=== PATIENT | female | born 1955 | race African-American/Black ===

== ENCOUNTER 2018-04-21 17:09 | Emergency (ER) | payer MEDICAID ==
[~2018-04-21] VITALS: Ht 152.4 cm; Wt 45.3 kg
[~2018-04-21 17:09] MED LIST: ACET-2178 PO; FAMO-134 PO; FOLI-43 PO; HYDR-523 PO; KEPP500 PO; LAM15 PO; LEVO100T9 PO; MULT-1146 PO; ONDA4TAB5 PO; OXCA300T4 PO; PHEN100C4 PO; TRAMADOL
[2018-04-21] MEDS ORDERED: SODIUM CHLORIDE 0.9% 1,000 ML IV ONE ×2 (17:47→23:45)
[2018-04-21] MEDS ORDERED: LORAZEPAM 2MG/ML CPJ IV ONE ×2 (18:30→23:45)
[2018-04-21 19:17] LABS: HEMATOCRIT. 35.8 % (36.0-48.0); HEMOGLOBIN. 12.2 g/dL (12.0-16.0); MEAN CORPUSCULAR HEMOGLOBIN 31.8 pg (28.0-32.0); MEAN CORPUSCULAR VOLUME 93.6 fL (81.0-99.0); MEAN PLATELET VOLUME 7.9 fl (7.4-10.4); PLATELET 204 x1000/uL (130-400); RED BLOOD CELL COUNT 3.82 mill/uL (4.2-5.4); RED CELL DISTRIBUTION WIDTH 13.6 % (11.6-14.6)
[2018-04-21 19:21] LABS: CHLORIDE 107 mEq/L (98-107)
[2018-04-21 19:24] LABS: INR 1.1; PARTIAL THROMBOPLASTIN TIME 23.3 sec (23.4-31.0)
[2018-04-21 19:34] LABS: PLATELET ESTIMATE NORMAL
[2018-04-21] MEDS ORDERED: LEVETIRACETAM 500MG PREMIX 100 ML IV ONE (23:45)
[2018-04-22] MEDS ORDERED: LORAZEPAM 2MG/ML CPJ IV ONE (02:30)
[2018-04-22] MEDS ORDERED: SODIUM CHLORIDE 0.9% 1,000 ML IV ONE (02:30)
[2018-04-22 04:10] VITALS: BP 124/81
== END 2018-04-22 04:21 | disposition home or self-care (01) ==
LOC: ER 17:09 → CANBEDREQ 04-22 05:36
DX: G40.909 Epilepsy, unspecified, not intractable, without status epilepticus (principal); G93.49 Other encephalopathy; I10 Essential (primary) hypertension; F03.90 Unspecified dementia, unspecified severity, without behavioral disturbance, psychotic disturbance, mood disturbance, and anxiety; Z86.73 Personal history of transient ischemic attack (TIA), and cerebral infarction without residual deficits; Z79.899 Other long term (current) drug therapy
CPT/HCPCS: 36415; 70450; 71045; 80053; 80185; 83605; 83690; 83880; 84145; 84484; 85025; 85610; 85730; 87040; 93005; 96365; 96375; 96376; 99284; J1953; J2060; J7030

== ENCOUNTER 2020-02-22 17:30 | Inpatient (IN) | payer MEDICAID ==
[~2020-02-22] VITALS: Ht 162.6 cm; Wt 56.8 kg
[~2020-02-22 17:30] MED LIST changes: -ACET-2178 PO; +TOPUD PO
[2020-02-22] MEDS ORDERED: VANCOMYCIN 1 G PREMIX 200 ML IV ONE (18:45)
[2020-02-22] MEDS ORDERED: PIPERACILLIN/TAZ 3.375G PREMIX 50 ML IV ONE (18:45)
[2020-02-22] MEDS ORDERED: SODIUM CHLORIDE 0.9% 1000ML BAG (SEPSIS BOLUS) IV ONE (18:45)
[2020-02-22] MEDS ORDERED: MAGNESIUM 2 G PREMIX 50 ML IV ONE (19:15)
[2020-02-22] MEDS ORDERED: ESMOLOL 2500MG PREMIX 250 ML IV NR (19:15)
[2020-02-22] MEDS ORDERED: ESMOLOL 2500MG PREMIX 250 ML IV ONE (19:15)
[2020-02-22 19:42] LABS: HEMATOCRIT. 39.7 % (36.0-48.0); HEMOGLOBIN. 13.2 g/dL (12.0-16.0); MEAN CORPUSCULAR HEMOGLOBIN 31.7 pg (28.0-32.0); MEAN CORPUSCULAR VOLUME 95.1 fL (81.0-99.0); MEAN PLATELET VOLUME 9.5 fl (7.4-10.4); PLATELET 148 x1000/uL (130-400); RED BLOOD CELL COUNT 4.18 mill/uL (4.2-5.4); RED CELL DISTRIBUTION WIDTH 14.1 % (11.6-14.6)
[2020-02-22 19:50] LABS: CHLORIDE 101 mEq/L (98-107)
[2020-02-22 19:53] LABS: INR 1.1; PROTHROMBIN TIME 11.2 sec (9.6-11.0)
[2020-02-22 20:05] LABS: CLARITY URINE TURBID (CLEAR); COLOR URINE DARK YELLOW (YELLOW); KETONES URINE NEGATIVE (NEGATIVE); LEUKOCYTE ESTERASE URINE 2+ (NEGATIVE); NITRITE URINE POSITIVE (NEGATIVE); OCCULT BLOOD URINE TRACE (NEGATIVE); PROTEIN URINE 2+ (NEGATIVE); SPECIFIC GRAVITY URINE 1.021 (1.005-1.030)
[2020-02-22 20:14] LABS: PLATELET ESTIMATE NORMAL
[2020-02-22] MEDS ORDERED: ACETAMINOPHEN 325MG TABLET PO ONE (20:30)
[2020-02-22] MEDS ORDERED: ONDANSETRON HCL 4MG/2ML INJ IV PRN (23:00)
[2020-02-22] MEDS ORDERED: ACETAMINOPHEN 325MG TABLET PO PRN (23:00)
[2020-02-22] MEDS ORDERED: SODIUM CHLORIDE 0.45% 1,000 ML IV SCH (23:00)
[2020-02-22] MEDS ORDERED: HYDROCODONE/ACETAMINOPHEN 5/325MG TABLET PO PRN (23:00)
[2020-02-22] MEDS ORDERED: CLONIDINE 0.1MG TABLET PO PRN (23:00)
[2020-02-22] MEDS ORDERED: PIPERACILLIN/TAZ 3.375G PREMIX 50 ML IV SCH (23:00)
[2020-02-22] MEDS ORDERED: MAGNESIUM/ALUMINUM HYDROXIDE/SIMETHICONE 30ML UDC PO PRN (23:00)
[2020-02-22] MEDS ORDERED: GUAIFENESIN 200MG/10ML SUGAR FREE UDC PO PRN (23:00)
[2020-02-22] MEDS ORDERED: DOCUSATE SODIUM 100MG CAPSULE PO PRN (23:00)
[2020-02-22] MEDS ORDERED: ENOXAPARIN 30MG/0.3ML SYR SUBCUT SCH (23:30)
[2020-02-23] MEDS ORDERED: PIPERACILLIN/TAZ 3.375G PREMIX 50 ML IV SCH (03:30)
[2020-02-23] MEDS ORDERED: ACETAMINOPHEN 325MG TABLET PO PRN ×2 (03:30→21:30)
[2020-02-23 06:08] LABS: HEMATOCRIT. 36.2 % (36.0-48.0); HEMOGLOBIN. 11.9 g/dL (12.0-16.0); MEAN CORPUSCULAR HEMOGLOBIN 31.9 pg (28.0-32.0); MEAN PLATELET VOLUME 10.5 fl (7.4-10.4); PLATELET 102 x1000/uL (130-400); RED BLOOD CELL COUNT 3.73 mill/uL (4.2-5.4); RED CELL DISTRIBUTION WIDTH 14.1 % (11.6-14.6)
[2020-02-23 06:09] LABS: CHLORIDE 108 mEq/L (98-107)
[2020-02-23] MEDS ORDERED: POTASSIUM CHLORIDE INJ 40 MEQ in DEXT 5% WATER 500 ML IV NR (08:00)
[2020-02-23 08:18] LABS: T4 FREE 1.14 ng/dL (0.76-1.46)
[2020-02-23] MEDS ORDERED: AMLODIPINE 10MG TABLET PO SCH (09:00)
[2020-02-23] MEDS ORDERED: DEXT 5%/0.45% NACL KCL 10MEQ/L 1,000 ML IV SCH (12:00)
[2020-02-23 12:20] VITALS: BP 116/73
[2020-02-23 12:43] VITALS: BP 116/73
[2020-02-23 13:00] VITALS: BP 116/73
[2020-02-23 13:58] LABS: PLATELET ESTIMATE SLIGHTLY DECREASED
[2020-02-23 15:59] LABS: CREATINE KINASE 123 IU/L (26-192)
[2020-02-23 16:20] VITALS: BP 91/52
[2020-02-23 20:00] VITALS: BP 112/73
[2020-02-23] MEDS ORDERED: GUAIFENESIN 200MG/10ML SUGAR FREE UDC PO PRN (21:30)
[2020-02-23] MEDS ORDERED: CLONIDINE 0.1MG TABLET PO PRN (21:30)
[2020-02-23] MEDS ORDERED: ONDANSETRON HCL 4MG/2ML INJ IV PRN (21:30)
[2020-02-23] MEDS ORDERED: DOCUSATE SODIUM 100MG CAPSULE PO PRN (21:30)
[2020-02-23] MEDS ORDERED: MAGNESIUM/ALUMINUM HYDROXIDE/SIMETHICONE 30ML UDC PO PRN (21:30)
[2020-02-23] MEDS ORDERED: HYDROCODONE/ACETAMINOPHEN 5/325MG TABLET PO PRN (21:30)
[2020-02-23] MEDS: ENOXAPARIN 30MG/0.3ML SYR SUBCUT SCH (23:00)
[2020-02-23] MEDS: DEXT 5%/0.45% NACL KCL 10MEQ/L 1,000 ML IV SCH (23:01)
[2020-02-23] MEDS: PIPERACILLIN/TAZOBACTAM 3.375 G in DEXT 5% WATER 100 ML IV SCH (23:01)
[2020-02-24] VITALS (16 sets, daily range): BP systolic 97–116; BP diastolic 64–90
[2020-02-24 00:11] LABS: CREATINE KINASE 76 IU/L (26-192)
[2020-02-24 00:12] LABS: CREATINE KINASE MB FRACTION < 1.0 ng/mL (0.5-3.6)
[2020-02-24] MEDS: PIPERACILLIN/TAZOBACTAM 3.375 G in DEXT 5% WATER 100 ML IV SCH ×2 (05:19→14:08)
[2020-02-24 07:04] LABS: CREATINE KINASE 103 IU/L (26-192)
[2020-02-24 07:05] LABS: CREATINE KINASE MB FRACTION < 1.0 ng/mL (0.5-3.6)
[2020-02-24] MEDS ORDERED: AMLODIPINE 10MG TABLET PO SCH (09:00)
[2020-02-24] MEDS: DEXT 5%/0.45% NACL KCL 10MEQ/L 1,000 ML IV SCH (11:35)
[2020-02-24] MEDS ORDERED: DILTIAZEM HCL 30MG TABLET PO PRN (12:00)
[2020-02-24] MEDS: SODIUM CHLORIDE 0.9% 1,000 ML IV SCH (12:52)
[2020-02-24] MEDS: MEROPENEM 1,000 MG in SODIUM CHLORIDE 0.9% 50 ML IV SCH (16:18)
[2020-02-24 16:57] LABS: BASOPHILS % 0.2 % (0.0-2.0); EOSINOPHILS % 5.9 % (0.0-5.0); HEMATOCRIT. 28.4 % (36.0-48.0); HEMOGLOBIN. 9.6 g/dL (12.0-16.0); LYMPHOCYTES % 8.9 % (20.0-50.0); MEAN CORPUSCULAR HEMOGLOBIN 31.9 pg (28.0-32.0); MEAN CORPUSCULAR VOLUME 94.4 fL (81.0-99.0); MEAN PLATELET VOLUME 8.4 fl (7.4-10.4); MONOCYTES % 7.8 % (2.0-8.0); NEUTROPHILS % 77.2 % (40.0-76.0); PLATELET 145 x1000/uL (130-400); RED BLOOD CELL COUNT 3.01 mill/uL (4.2-5.4); RED CELL DISTRIBUTION WIDTH 14.3 % (11.6-14.6)
[2020-02-24 17:01] LABS: CHLORIDE 112 mEq/L (98-107)
[2020-02-24] MEDS: METOCLOPRAMIDE HCL 10MG/2ML VIAL IV SCH (21:08)
[2020-02-24] MEDS: ENOXAPARIN 30MG/0.3ML SYR SUBCUT SCH (21:08)
[2020-02-25] VITALS (15 sets, daily range): BP systolic 95–117; BP diastolic 22–69
[2020-02-25] MEDS: MEROPENEM 1,000 MG in SODIUM CHLORIDE 0.9% 50 ML IV SCH ×3 (01:56→18:43)
[2020-02-25] MEDS: METOCLOPRAMIDE HCL 10MG/2ML VIAL IV SCH ×4 (03:11→20:51)
[2020-02-25] MEDS: SODIUM CHLORIDE 0.9% 1,000 ML IV SCH (03:11)
[2020-02-25 07:37] LABS: BASOPHILS % 0.2 % (0.0-2.0); EOSINOPHILS % 4.8 % (0.0-5.0); HEMOGLOBIN. 9.4 g/dL (12.0-16.0); LYMPHOCYTES % 8.6 % (20.0-50.0); MEAN CORPUSCULAR HEMOGLOBIN 31.8 pg (28.0-32.0); MEAN CORPUSCULAR VOLUME 94.8 fL (81.0-99.0); MEAN PLATELET VOLUME 8.8 fl (7.4-10.4); MONOCYTES % 10.7 % (2.0-8.0); NEUTROPHILS % 75.7 % (40.0-76.0); PLATELET 144 x1000/uL (130-400); RED BLOOD CELL COUNT 2.96 mill/uL (4.2-5.4); RED CELL DISTRIBUTION WIDTH 14.6 % (11.6-14.6)
[2020-02-25 07:38] LABS: CHLORIDE 116 mEq/L (98-107)
[2020-02-25] MEDS ORDERED: DEXTROSE 50% WATER 50ML SYRINGE IV PRN (09:15)
[2020-02-25] MEDS ORDERED: DEXT 5%/0.9% NACL 1,000 ML IV SCH (10:15)
[2020-02-25] MEDS: DEXT 5%/0.45% NACL 1000ML 1,000 ML IV SCH ×2 (10:25→22:47)
[2020-02-25] MEDS: BLOOD SUGAR DIAGNOSTIC STRIP TEST SCH ×3 (11:50→20:59)
[2020-02-25] MEDS: INSULIN LISPRO 100 UNITS/ML SUBCUT SCH ×3 (12:20→20:59)
[2020-02-25] MEDS: ENOXAPARIN 30MG/0.3ML SYR SUBCUT SCH (22:46)
[2020-02-26] VITALS (11 sets, daily range): BP systolic 112–123; BP diastolic 64–76
[2020-02-26] MEDS: METOCLOPRAMIDE HCL 10MG/2ML VIAL IV SCH ×3 (02:20→13:36)
[2020-02-26] MEDS: MEROPENEM 1,000 MG in SODIUM CHLORIDE 0.9% 50 ML IV SCH ×2 (02:20→09:40)
[2020-02-26 06:29] LABS: CHLORIDE 114 mEq/L (98-107)
[2020-02-26 06:43] LABS: BASOPHILS % 0.2 % (0.0-2.0); EOSINOPHILS % 4.8 % (0.0-5.0); HEMATOCRIT. 33.1 % (36.0-48.0); HEMOGLOBIN. 10.8 g/dL (12.0-16.0); LYMPHOCYTES % 12.5 % (20.0-50.0); MEAN CORPUSCULAR HEMOGLOBIN 31.5 pg (28.0-32.0); MEAN CORPUSCULAR VOLUME 96.4 fL (81.0-99.0); NEUTROPHILS % 69.5 % (40.0-76.0); RED BLOOD CELL COUNT 3.43 mill/uL (4.2-5.4); RED CELL DISTRIBUTION WIDTH 14.5 % (11.6-14.6)
[2020-02-26] MEDS: INSULIN LISPRO 100 UNITS/ML SUBCUT SCH ×3 (07:20→17:20)
[2020-02-26] MEDS: BLOOD SUGAR DIAGNOSTIC STRIP TEST SCH ×3 (07:36→17:10)
[2020-02-26 08:04] LABS: PLATELET 103 x1000/uL (130-400)
[2020-02-26] MEDS: DEXT 5%/0.45% NACL 1000ML 1,000 ML IV SCH (13:19)
[2020-02-26] MEDS ORDERED: MEROPENEM 1000MG in NORMAL SALINE 100ML IV SCH (17:00)
== END 2020-02-26 18:22 | DRG 720 ==
LOC: ER 17:30 → 6WST 21:06 → EDBEDREQTM 21:07 → EDBEDREQ 21:07 → EDBEDREQSVC 21:07 → ENRESERV 21:36 → CANRESERV 21:36 → EDBEDREQSVC 02-23 07:54 → ENRESERV 02-23 10:22 → 3WST 02-23 20:32
PROVIDERS: ADMIT Hospitalist; ATTEND Hospitalist
DX: A41.51 Sepsis due to Escherichia coli [E. coli] (principal); J96.01 Acute respiratory failure with hypoxia; G93.41 Metabolic encephalopathy; N39.0 Urinary tract infection, site not specified; I10 Essential (primary) hypertension; Z20.828 Contact with and (suspected) exposure to other viral communicable diseases; E43 Unspecified severe protein-calorie malnutrition; E86.0 Dehydration; I48.20 Chronic atrial fibrillation, unspecified; G40.909 Epilepsy, unspecified, not intractable, without status epilepticus; I35.0 Nonrheumatic aortic (valve) stenosis; F03.90 Unspecified dementia, unspecified severity, without behavioral disturbance, psychotic disturbance, mood disturbance, and anxiety; Z16.12 Extended spectrum beta lactamase (ESBL) resistance; Z86.73 Personal history of transient ischemic attack (TIA), and cerebral infarction without residual deficits; Z79.899 Other long term (current) drug therapy; Z68.21 Body mass index [BMI] 21.0-21.9, adult
CPT/HCPCS: 36415; 71045; 80053; 80061; 81003; 82550; 82553; 82962; 83036; 83605; 83735; 83880; 84145; 84439; 84443; 84484; 85025; 85379; 87077; 87186; 87426; 93005; 93306; 93970; 96365; 99291; J1650; J2185; J2543; J2765; J3370; J3475; J3480; J3490; J7030; J7060

== ENCOUNTER 2020-02-27 10:19 | Inpatient (IN) | payer MEDICAID ==
[~2020-02-27] VITALS: Ht 162.6 cm; Wt 71.4 kg
[2020-02-27] MEDS ORDERED: PIPERACILLIN/TAZ 3.375G PREMIX 50 ML IV ONE (11:00)
[2020-02-27] MEDS ORDERED: SODIUM CHLORIDE 0.9% 1000ML BAG (SEPSIS BOLUS) IV ONE (11:00)
[2020-02-27] MEDS ORDERED: VANCOMYCIN 1 G PREMIX 200 ML IV ONE (11:00)
[2020-02-27] MEDS ORDERED: MEROPENEM 1,000 MG in SODIUM CHLORIDE 0.9% 100 ML IV SCH (11:15)
[2020-02-27 11:54] LABS: BG BASE EXCESS 2.3 mmol/L (-2.0-2.0); BG CARBOXYHEMOGLOBIN 0.3 % (0.5-1.5); BG DEOXYHEMOGLOBIN 3.5 % (0.0-5.0); BG FRACTION INSPIRED OXYGEN 21; BG HCO3 ACT 24.9 mmol/L (22.0-26.0); BG METHEMOGLOBIN 0.2 % (0.0-1.5); BG OXYGEN SATURATION 96.5 % (92.0-98.5); BG PCO2 31.3 mmHg (35.0-45.0); BG PH 7.518 (7.350-7.450); BG PO2 79.6 mmHg (75.0-100.0); BG SAMPLE SITE RIGHT BRACHIAL; BG VENT MODE ROOM AIR
[2020-02-27 12:41] LABS: HEMATOCRIT. 28.9 % (36.0-48.0); HEMOGLOBIN. 9.7 g/dL (12.0-16.0); MEAN CORPUSCULAR HEMOGLOBIN 31.6 pg (28.0-32.0); MEAN CORPUSCULAR VOLUME 93.9 fL (81.0-99.0); PLATELET 259 x1000/uL (130-400); RED BLOOD CELL COUNT 3.08 mill/uL (4.2-5.4); RED CELL DISTRIBUTION WIDTH 14.2 % (11.6-14.6)
[2020-02-27 12:43] LABS: PROTHROMBIN TIME 10.3 sec (9.6-11.0)
[2020-02-27 13:03] LABS: CHLORIDE 110 mEq/L (98-107)
[2020-02-27 14:43] LABS: CLARITY URINE CLEAR (CLEAR); COLOR URINE YELLOW (YELLOW); KETONES URINE NEGATIVE (NEGATIVE); LEUKOCYTE ESTERASE URINE 1+ (NEGATIVE); NITRITE URINE NEGATIVE (NEGATIVE); OCCULT BLOOD URINE 2+ (NEGATIVE); PH URINE 6.5 (4.5-8.0); PROTEIN URINE 1+ (NEGATIVE); SPECIFIC GRAVITY URINE 1.016 (1.005-1.030)
[2020-02-27 14:47] LABS: PLATELET ESTIMATE NORMAL
[2020-02-27] MEDS ORDERED: ACETAMINOPHEN 325MG TABLET PO PRN ×2 (19:00)
[2020-02-27] MEDS ORDERED: HYDROCODONE/ACETAMINOPHEN 5/325MG TABLET PO PRN (19:00)
[2020-02-27] MEDS ORDERED: DOCUSATE SODIUM 100MG CAPSULE PO PRN (19:00)
[2020-02-27] MEDS ORDERED: LORAZEPAM 0.5MG TABLET PO PRN (19:00)
[2020-02-27] MEDS ORDERED: IPRATROPIUM/ALBUTEROL 0.5-3(2.5)MG/3ML NEB HHN PRN (19:00)
[2020-02-27] MEDS ORDERED: ONDANSETRON HCL 4MG/2ML INJ IV PRN (19:00)
[2020-02-27] MEDS ORDERED: CLONIDINE 0.1MG TABLET PO PRN (19:00)
[2020-02-27 21:16] VITALS: BP 126/74
[2020-02-27 23:56] VITALS: BP 133/80
[2020-02-28] MEDS ORDERED: LEVO50TA8 PO (03:05)
[2020-02-28 04:00] VITALS: BP 121/73
[2020-02-28] MEDS ORDERED: MEROPENEM 1,000 MG in SODIUM CHLORIDE 0.9% 100 ML IV SCH (05:00)
[2020-02-28 08:00] VITALS: BP 96/61
[2020-02-28 08:03] LABS: BASOPHILS % 0.2 % (0.0-2.0); EOSINOPHILS % 2.9 % (0.0-5.0); HEMATOCRIT. 29.2 % (36.0-48.0); HEMOGLOBIN. 9.9 g/dL (12.0-16.0); LYMPHOCYTES % 9.8 % (20.0-50.0); MEAN CORPUSCULAR HEMOGLOBIN 31.7 pg (28.0-32.0); MEAN CORPUSCULAR VOLUME 93.3 fL (81.0-99.0); MEAN PLATELET VOLUME 8.2 fl (7.4-10.4); MONOCYTES % 10.2 % (2.0-8.0); NEUTROPHILS % 76.9 % (40.0-76.0); PLATELET 281 x1000/uL (130-400); RED BLOOD CELL COUNT 3.13 mill/uL (4.2-5.4); RED CELL DISTRIBUTION WIDTH 14.3 % (11.6-14.6)
[2020-02-28 08:16] LABS: CHLORIDE 110 mEq/L (98-107)
[2020-02-28 12:00] VITALS: BP_SYST 119; BP_SYST 87; BP_DIAS 50; BP_DIAS 70
[2020-02-28 16:00] VITALS: BP 123/74
[2020-02-28] MEDS: FAMOTIDINE 20MG TABLET PO SCH (18:39)
[2020-02-28] MEDS: FOLIC ACID 1MG TABLET PO SCH (18:39)
[2020-02-28] MEDS: LEVOTHYROXINE SODIUM 50MCG TABLET PO SCH (18:39)
[2020-02-28] MEDS ORDERED: POTASSIUM CHLORIDE 20MEQ/PACKET PO NR (19:00)
[2020-02-28 20:00] VITALS: BP 125/76
[2020-02-28] MEDS ORDERED: PHENYTOIN SODIUM EXTENDED 100MG CAPSULE PO SCH (21:00)
[2020-02-28] MEDS: LAMOTRIGINE 150MG TABLET PO SCH (21:36)
[2020-02-28] MEDS: LEVETIRACETAM 500MG TABLET PO SCH (21:36)
[2020-02-28] MEDS: PHENYTOIN 100 MG/4 ML UDC NG SCH (21:38)
[2020-02-28] MEDS: OXCARBAZEPINE 300MG TABLET PO SCH (21:38)
[2020-02-28 22:30] LABS: FOLIC ACID (FOLATE) SERUM > 20.00 ng/mL (>5.38)
[2020-02-28 22:40] LABS: VITAMIN B12 SERUM 1036 pg/mL (211-911)
[2020-02-29] VITALS: BP 131/75
[2020-02-29 04:00] VITALS: BP 118/73
[2020-02-29] MEDS: LEVOTHYROXINE SODIUM 50MCG TABLET PO SCH (05:52)
[2020-02-29] MEDS: FAMOTIDINE 20MG TABLET PO SCH (05:52)
[2020-02-29 06:34] LABS: BASOPHILS % 0.2 % (0.0-2.0); EOSINOPHILS % 3.7 % (0.0-5.0); HEMATOCRIT. 29.5 % (36.0-48.0); HEMOGLOBIN. 9.9 g/dL (12.0-16.0); LYMPHOCYTES % 9.9 % (20.0-50.0); MEAN CORPUSCULAR HEMOGLOBIN 31.4 pg (28.0-32.0); MEAN PLATELET VOLUME 8.1 fl (7.4-10.4); MONOCYTES % 12.6 % (2.0-8.0); NEUTROPHILS % 73.6 % (40.0-76.0); PLATELET 354 x1000/uL (130-400); RED BLOOD CELL COUNT 3.14 mill/uL (4.2-5.4); RED CELL DISTRIBUTION WIDTH 14.3 % (11.6-14.6)
[2020-02-29 07:17] LABS: CHLORIDE 108 mEq/L (98-107)
[2020-02-29 08:00] VITALS: BP 125/77
[2020-02-29] MEDS: OXCARBAZEPINE 300MG TABLET PO SCH ×2 (10:08→20:52)
[2020-02-29] MEDS: FOLIC ACID 1MG TABLET PO SCH (10:08)
[2020-02-29] MEDS: LEVETIRACETAM 500MG TABLET PO SCH ×2 (10:08→20:52)
[2020-02-29] MEDS: LAMOTRIGINE 150MG TABLET PO SCH ×2 (10:08→20:52)
[2020-02-29] MEDS: MEROPENEM 1,000 MG in SODIUM CHLORIDE 0.9% 100 ML IV SCH ×2 (11:19→20:47)
[2020-02-29 12:00] VITALS: BP 131/68
[2020-02-29] MEDS: LACTULOSE 20G/30ML UDC PO SCH ×2 (15:17→21:01)
[2020-02-29 16:00] VITALS: BP 109/67
[2020-02-29 20:00] VITALS: BP 113/65
[2020-02-29] MEDS: PHENYTOIN 100 MG/4 ML UDC NG SCH (20:52)
[2020-03-01] VITALS: BP 112/63
[2020-03-01] MEDS: MEROPENEM 1,000 MG in SODIUM CHLORIDE 0.9% 100 ML IV SCH ×3 (03:06→22:07)
[2020-03-01 04:00] VITALS: BP 97/66
[2020-03-01] MEDS: LACTULOSE 20G/30ML UDC PO SCH ×3 (06:08→22:07)
[2020-03-01] MEDS: FAMOTIDINE 20MG TABLET PO SCH (06:08)
[2020-03-01] MEDS: LEVOTHYROXINE SODIUM 50MCG TABLET PO SCH (06:09)
[2020-03-01 06:57] LABS: CHLORIDE 110 mEq/L (98-107)
[2020-03-01 06:58] LABS: BASOPHILS % 0.5 % (0.0-2.0); EOSINOPHILS % 4.7 % (0.0-5.0); HEMATOCRIT. 26.5 % (36.0-48.0); HEMOGLOBIN. 8.8 g/dL (12.0-16.0); LYMPHOCYTES % 12.5 % (20.0-50.0); MEAN CORPUSCULAR HEMOGLOBIN 31.6 pg (28.0-32.0); MEAN CORPUSCULAR VOLUME 94.6 fL (81.0-99.0); MEAN PLATELET VOLUME 8.6 fl (7.4-10.4); MONOCYTES % 8.2 % (2.0-8.0); NEUTROPHILS % 74.1 % (40.0-76.0); PLATELET 355 x1000/uL (130-400); RED CELL DISTRIBUTION WIDTH 14.3 % (11.6-14.6)
[2020-03-01 07:22] LABS: HEPATITIS B SURFACE ANTIGEN NEGATIVE
[2020-03-01 07:51] LABS: HEPATITIS A AB IGM NEGATIVE (NEGATIVE)
[2020-03-01 08:00] VITALS: BP 103/71
[2020-03-01] MEDS: OXCARBAZEPINE 300MG TABLET PO SCH ×2 (10:22→22:06)
[2020-03-01] MEDS: LEVETIRACETAM 500MG TABLET PO SCH ×2 (10:22→22:07)
[2020-03-01] MEDS: FOLIC ACID 1MG TABLET PO SCH (10:22)
[2020-03-01] MEDS: LAMOTRIGINE 150MG TABLET PO SCH ×2 (10:22→22:07)
[2020-03-01 12:00] VITALS: BP 119/70
[2020-03-01 16:00] VITALS: BP 107/58
[2020-03-01 20:00] VITALS: BP 113/63
[2020-03-02] VITALS (8 sets, daily range): BP systolic 101–122; BP diastolic 58–75
[2020-03-02] MEDS: MEROPENEM 1,000 MG in SODIUM CHLORIDE 0.9% 100 ML IV SCH ×3 (03:33→21:31)
[2020-03-02] MEDS: LACTULOSE 20G/30ML UDC PO SCH ×3 (05:48→21:31)
[2020-03-02] MEDS: LEVOTHYROXINE SODIUM 50MCG TABLET PO SCH (05:48)
[2020-03-02] MEDS: FAMOTIDINE 20MG TABLET PO SCH (05:48)
[2020-03-02 05:58] LABS: CHLORIDE 111 mEq/L (98-107)
[2020-03-02 06:13] LABS: TOTAL IRON BINDING CAPACITY 224 ug/dL (250-450)
[2020-03-02 06:28] LABS: BASOPHILS % 0.4 % (0.0-2.0); HEMATOCRIT. 26.7 % (36.0-48.0); LYMPHOCYTES % 10.5 % (20.0-50.0); MEAN CORPUSCULAR HEMOGLOBIN 31.9 pg (28.0-32.0); MEAN CORPUSCULAR VOLUME 94.2 fL (81.0-99.0); MEAN PLATELET VOLUME 7.8 fl (7.4-10.4); MONOCYTES % 8.4 % (2.0-8.0); NEUTROPHILS % 76.7 % (40.0-76.0); PLATELET 390 x1000/uL (130-400); RED BLOOD CELL COUNT 2.83 mill/uL (4.2-5.4); RED CELL DISTRIBUTION WIDTH 14.3 % (11.6-14.6)
[2020-03-02] MEDS: LEVETIRACETAM 500MG TABLET PO SCH ×2 (09:21→21:31)
[2020-03-02] MEDS: LAMOTRIGINE 150MG TABLET PO SCH ×2 (09:21→21:31)
[2020-03-02] MEDS: OXCARBAZEPINE 300MG TABLET PO SCH ×2 (09:21→21:31)
[2020-03-02] MEDS: FOLIC ACID 1MG TABLET PO SCH (09:21)
[2020-03-02] MEDS ORDERED: KCL 20MEQ/100ML PREMIX 100 ML IV NR (13:00)
[2020-03-02] MEDS ORDERED: SODIUM CHLORIDE 0.9% 500 ML IV ONE ×2 (14:00→16:00)
[2020-03-02] MEDS: FERROUS SULFATE 300MG/5ML UDC PO SCH (17:28)
[2020-03-03] VITALS: BP 104/62
[2020-03-03 04:00] VITALS: BP 132/61
[2020-03-03] MEDS: MEROPENEM 1,000 MG in SODIUM CHLORIDE 0.9% 100 ML IV SCH ×3 (04:20→20:45)
[2020-03-03 06:11] LABS: HEMATOCRIT. 29.6 % (36.0-48.0); HEMOGLOBIN. 9.9 g/dL (12.0-16.0); MEAN CORPUSCULAR HEMOGLOBIN 31.3 pg (28.0-32.0); MEAN CORPUSCULAR VOLUME 94.1 fL (81.0-99.0); MEAN PLATELET VOLUME 7.6 fl (7.4-10.4); PLATELET 413 x1000/uL (130-400); RED BLOOD CELL COUNT 3.15 mill/uL (4.2-5.4); RED CELL DISTRIBUTION WIDTH 14.4 % (11.6-14.6)
[2020-03-03 06:15] LABS: CHLORIDE 112 mEq/L (98-107)
[2020-03-03] MEDS: LACTULOSE 20G/30ML UDC PO SCH ×3 (06:16→21:09)
[2020-03-03] MEDS: FERROUS SULFATE 300MG/5ML UDC PO SCH ×3 (06:16→18:24)
[2020-03-03] MEDS: LEVOTHYROXINE SODIUM 50MCG TABLET PO SCH (06:17)
[2020-03-03] MEDS: FAMOTIDINE 20MG TABLET PO SCH (06:17)
[2020-03-03 08:00] VITALS: BP 107/55
[2020-03-03] MEDS: FOLIC ACID 1MG TABLET PO SCH (09:27)
[2020-03-03] MEDS: OXCARBAZEPINE 300MG TABLET PO SCH ×2 (09:27→20:45)
[2020-03-03] MEDS: LEVETIRACETAM 500MG TABLET PO SCH ×2 (09:27→20:45)
[2020-03-03] MEDS: LAMOTRIGINE 150MG TABLET PO SCH ×2 (09:27→20:45)
[2020-03-03 10:51] LABS: PLATELET ESTIMATE SLIGHTLY INCREASED
[2020-03-03 12:00] VITALS: BP 98/55
[2020-03-03 16:00] VITALS: BP 96/58
[2020-03-03 20:00] VITALS: BP 93/57
[2020-03-04] VITALS (11 sets, daily range): BP systolic 94–142; BP diastolic 46–79
[2020-03-04] MEDS: MEROPENEM 1,000 MG in SODIUM CHLORIDE 0.9% 100 ML IV SCH ×3 (04:29→20:45)
[2020-03-04] MEDS: LACTULOSE 20G/30ML UDC PO SCH ×4 (05:08→21:51)
[2020-03-04] MEDS: FAMOTIDINE 20MG TABLET PO SCH (05:53)
[2020-03-04] MEDS: LEVOTHYROXINE SODIUM 50MCG TABLET PO SCH (05:53)
[2020-03-04] MEDS: FERROUS SULFATE 300MG/5ML UDC PO SCH ×4 (06:27→18:02)
[2020-03-04 07:06] LABS: HEMATOCRIT. 27.7 % (36.0-48.0); HEMOGLOBIN. 9.2 g/dL (12.0-16.0); MEAN CORPUSCULAR HEMOGLOBIN 31.2 pg (28.0-32.0); MEAN CORPUSCULAR VOLUME 94.2 fL (81.0-99.0); MEAN PLATELET VOLUME 7.6 fl (7.4-10.4); PLATELET 418 x1000/uL (130-400); RED BLOOD CELL COUNT 2.94 mill/uL (4.2-5.4); RED CELL DISTRIBUTION WIDTH 14.5 % (11.6-14.6)
[2020-03-04 07:14] LABS: CHLORIDE 108 mEq/L (98-107)
[2020-03-04 09:09] LABS: LEVETIRACETAM / KEPPRA 12.2 ug/mL (10.0-40.0)
[2020-03-04] MEDS: LAMOTRIGINE 150MG TABLET PO SCH ×2 (09:30→21:00)
[2020-03-04] MEDS: LEVETIRACETAM 500MG TABLET PO SCH ×2 (09:30→21:00)
[2020-03-04] MEDS: OXCARBAZEPINE 300MG TABLET PO SCH ×2 (09:30→21:00)
[2020-03-04] MEDS: FOLIC ACID 1MG TABLET PO SCH (09:30)
[2020-03-04] MEDS ORDERED: BARIUM SULFATE 450ML ORAL SUSP PO SCH ×2 (11:00)
[2020-03-04] MEDS ORDERED: SODIUM BICARBONATE 4% (2.4MEQ) 5ML VIAL IV ONE ×2 (11:38→12:37)
[2020-03-04] MEDS ORDERED: LIDOCAINE HCL 1% 20ML VIAL (Pyxis) INJ ONE ×2 (11:39→12:37)
[2020-03-04] MEDS ORDERED: IOHEXOL-300 100 ML BOTTLE ONE (12:30)
[2020-03-04] MEDS ORDERED: FENTANYL CITRATE/PF 50MCG/ML 2ML VIAL ONE (12:37)
[2020-03-04 18:58] LABS: PLATELET ESTIMATE SLIGHTLY INCREASED
[2020-03-05] VITALS: BP_SYST 120; BP_SYST 135; BP_DIAS 69; BP_DIAS 75
[2020-03-05] MEDS: MEROPENEM 1,000 MG in SODIUM CHLORIDE 0.9% 100 ML IV SCH ×3 (03:25→20:12)
[2020-03-05 04:00] VITALS: BP 101/63
[2020-03-05] MEDS: LACTULOSE 20G/30ML UDC PO SCH ×3 (06:00→20:13)
[2020-03-05 06:41] LABS: BASOPHILS % 0.4 % (0.0-2.0); EOSINOPHILS % 2.3 % (0.0-5.0); HEMATOCRIT. 25.5 % (36.0-48.0); HEMOGLOBIN. 8.6 g/dL (12.0-16.0); LYMPHOCYTES % 8.3 % (20.0-50.0); MEAN CORPUSCULAR HEMOGLOBIN 31.7 pg (28.0-32.0); MEAN CORPUSCULAR VOLUME 93.8 fL (81.0-99.0); MEAN PLATELET VOLUME 7.6 fl (7.4-10.4); MONOCYTES % 7.9 % (2.0-8.0); NEUTROPHILS % 81.1 % (40.0-76.0); PLATELET 397 x1000/uL (130-400); RED BLOOD CELL COUNT 2.72 mill/uL (4.2-5.4); RED CELL DISTRIBUTION WIDTH 14.6 % (11.6-14.6)
[2020-03-05] MEDS: LEVOTHYROXINE SODIUM 50MCG TABLET PO SCH (06:44)
[2020-03-05] MEDS: FERROUS SULFATE 300MG/5ML UDC PO SCH ×3 (06:44→17:15)
[2020-03-05] MEDS: FAMOTIDINE 20MG TABLET PO SCH (06:44)
[2020-03-05 06:51] LABS: CHLORIDE 107 mEq/L (98-107)
[2020-03-05 08:14] VITALS: BP 113/66
[2020-03-05] MEDS: FOLIC ACID 1MG TABLET PO SCH (09:00)
[2020-03-05] MEDS: LEVETIRACETAM 500MG TABLET PO SCH ×2 (09:00→20:13)
[2020-03-05] MEDS: LAMOTRIGINE 150MG TABLET PO SCH ×2 (09:00→20:13)
[2020-03-05] MEDS: OXCARBAZEPINE 300MG TABLET PO SCH ×2 (09:00→20:13)
[2020-03-05] MEDS: SODIUM CHLORIDE 0.9% 1,000 ML IV SCH (10:30)
[2020-03-05] MEDS ORDERED: LEVETIRACETAM 500MG PREMIX 100 ML IV SCH (11:00)
[2020-03-05 12:00] VITALS: BP 121/75
[2020-03-05 16:00] VITALS: BP 126/67
[2020-03-05 20:00] VITALS: BP 129/81
[2020-03-06] VITALS: BP 123/83
[2020-03-06] MEDS: SODIUM CHLORIDE 0.9% 1,000 ML IV SCH ×3 (03:03→23:14)
[2020-03-06 04:00] VITALS: BP 126/71
[2020-03-06] MEDS: MEROPENEM 1,000 MG in SODIUM CHLORIDE 0.9% 100 ML IV SCH ×3 (04:33→20:19)
[2020-03-06 05:53] LABS: BASOPHILS % 0.8 % (0.0-2.0); EOSINOPHILS % 5.3 % (0.0-5.0); HEMATOCRIT. 28.2 % (36.0-48.0); HEMOGLOBIN. 9.5 g/dL (12.0-16.0); MEAN CORPUSCULAR HEMOGLOBIN 31.3 pg (28.0-32.0); MEAN CORPUSCULAR VOLUME 92.9 fL (81.0-99.0); MEAN PLATELET VOLUME 7.6 fl (7.4-10.4); MONOCYTES % 8.1 % (2.0-8.0); NEUTROPHILS % 72.8 % (40.0-76.0); PLATELET 420 x1000/uL (130-400); RED BLOOD CELL COUNT 3.04 mill/uL (4.2-5.4)
[2020-03-06] MEDS: LEVOTHYROXINE SODIUM 50MCG TABLET PO SCH (05:58)
[2020-03-06] MEDS: FERROUS SULFATE 300MG/5ML UDC PO SCH ×3 (05:58→17:46)
[2020-03-06] MEDS: LACTULOSE 20G/30ML UDC PO SCH ×3 (05:58→20:19)
[2020-03-06] MEDS: FAMOTIDINE 20MG TABLET PO SCH (05:58)
[2020-03-06 06:46] LABS: CHLORIDE 110 mEq/L (98-107)
[2020-03-06 08:00] VITALS: BP 129/72
[2020-03-06 12:00] VITALS: BP 115/71
[2020-03-06] MEDS ORDERED: MIDAZOLAM HCL 5 MG/5 ML VIAL ONE (12:03)
[2020-03-06] MEDS ORDERED: FENTANYL CITRATE/PF 50MCG/ML 2ML VIAL ONE (12:03)
[2020-03-06] MEDS ORDERED: MIDAZOLAM HCL 2 MG/2 ML VIAL IV PRN (12:27)
[2020-03-06] MEDS: FOLIC ACID 1MG TABLET PO SCH (13:44)
[2020-03-06] MEDS: LEVETIRACETAM 500MG TABLET PO SCH ×2 (13:44→20:19)
[2020-03-06] MEDS: OXCARBAZEPINE 300MG TABLET PO SCH ×2 (13:44→20:19)
[2020-03-06] MEDS: LAMOTRIGINE 150MG TABLET PO SCH ×2 (13:44→20:19)
[2020-03-06 16:00] VITALS: BP 126/75
[2020-03-06 20:00] VITALS: BP 94/57
[2020-03-07] VITALS (8 sets, daily range): BP systolic 107–139; BP diastolic 59–79
[2020-03-07] MEDS: MEROPENEM 1,000 MG in SODIUM CHLORIDE 0.9% 100 ML IV SCH ×3 (04:51→20:41)
[2020-03-07 05:53] LABS: BASOPHILS % 0.6 % (0.0-2.0); EOSINOPHILS % 3.2 % (0.0-5.0); HEMATOCRIT. 27.3 % (36.0-48.0); HEMOGLOBIN. 9.4 g/dL (12.0-16.0); LYMPHOCYTES % 10.2 % (20.0-50.0); MEAN CORPUSCULAR VOLUME 93.1 fL (81.0-99.0); MEAN PLATELET VOLUME 7.6 fl (7.4-10.4); MONOCYTES % 7.3 % (2.0-8.0); NEUTROPHILS % 78.7 % (40.0-76.0); PLATELET 420 x1000/uL (130-400); RED BLOOD CELL COUNT 2.93 mill/uL (4.2-5.4); RED CELL DISTRIBUTION WIDTH 13.7 % (11.6-14.6)
[2020-03-07 06:18] LABS: CHLORIDE 109 mEq/L (98-107)
[2020-03-07] MEDS: FAMOTIDINE 20MG TABLET PO SCH (06:42)
[2020-03-07] MEDS: LACTULOSE 20G/30ML UDC PO SCH ×3 (06:42→21:35)
[2020-03-07] MEDS: LEVOTHYROXINE SODIUM 50MCG TABLET PO SCH (06:42)
[2020-03-07] MEDS: FERROUS SULFATE 300MG/5ML UDC PO SCH ×3 (06:42→18:35)
[2020-03-07] MEDS: LEVETIRACETAM 500MG TABLET PO SCH ×2 (09:02→21:35)
[2020-03-07] MEDS: FOLIC ACID 1MG TABLET PO SCH (09:02)
[2020-03-07] MEDS: LAMOTRIGINE 150MG TABLET PO SCH ×2 (09:02→21:35)
[2020-03-07] MEDS: OXCARBAZEPINE 300MG TABLET PO SCH ×2 (09:03→21:35)
[2020-03-07] MEDS ORDERED: AMOX-424 MT (13:47)
[2020-03-07] MEDS ORDERED: DEXTROSE 5% IV NR ×4 (18:30→21:00)
[2020-03-07] MEDS ORDERED: FOSPHENYTOIN SODIUM IV NR ×4 (18:30→21:00)
[2020-03-07] MEDS ORDERED: WATER IV NR ×4 (18:30→21:00)
[2020-03-07] MEDS: SODIUM CHLORIDE 0.9% 1,000 ML IV SCH (18:36)
== END 2020-03-07 23:54 | DRG 720 ==
LOC: ER 10:26 → 7EST 14:46 → EDBEDREQTM 14:50 → EDBEDREQ 14:50 → EDBEDREQSVC 14:50 → ENRESERV 15:30 → CANRESERV 15:30 → ENRESERV 19:22 → 5WST 02-29 08:48
PROVIDERS: ADMIT Internal Medicine; ATTEND Internal Medicine
PROC: 4A10X4Z Monitoring of Central Nervous Electrical Activity, External Approach (ICD-10-PCS; principal; 2020-03-02)
PROC: 02HV33Z Insertion of Infusion Device into Superior Vena Cava, Percutaneous Approach (ICD-10-PCS; 2020-03-04)
PROC: B518ZZA Fluoroscopy of Superior Vena Cava, Guidance (ICD-10-PCS; 2020-03-04)
PROC: B548ZZA Ultrasonography of Superior Vena Cava, Guidance (ICD-10-PCS; 2020-03-04)
PROC: 0F943ZZ Drainage of Gallbladder, Percutaneous Approach (ICD-10-PCS; 2020-03-04)
PROC: 0DH63UZ Insertion of Feeding Device into Stomach, Percutaneous Approach (ICD-10-PCS; 2020-03-06)
DX: A41.9 Sepsis, unspecified organism (principal); G92 Toxic encephalopathy; N39.0 Urinary tract infection, site not specified; J18.9 Pneumonia, unspecified organism; E87.2 Acidosis; D72.821 Monocytosis (symptomatic); E87.6 Hypokalemia; I35.0 Nonrheumatic aortic (valve) stenosis; G40.909 Epilepsy, unspecified, not intractable, without status epilepticus; F03.90 Unspecified dementia, unspecified severity, without behavioral disturbance, psychotic disturbance, mood disturbance, and anxiety; I48.91 Unspecified atrial fibrillation; F32.9 Major depressive disorder, single episode, unspecified; K21.9 Gastro-esophageal reflux disease without esophagitis; D72.810 Lymphocytopenia; D50.9 Iron deficiency anemia, unspecified; E87.4 Mixed disorder of acid-base balance; Z16.12 Extended spectrum beta lactamase (ESBL) resistance; R74.01 Elevation of levels of liver transaminase levels; K80.01 Calculus of gallbladder with acute cholecystitis with obstruction; E72.20 Disorder of urea cycle metabolism, unspecified; Z20.828 Contact with and (suspected) exposure to other viral communicable diseases; K44.9 Diaphragmatic hernia without obstruction or gangrene; R13.12 Dysphagia, oropharyngeal phase; E43 Unspecified severe protein-calorie malnutrition; E11.9 Type 2 diabetes mellitus without complications; G81.94 Hemiplegia, unspecified affecting left nondominant side; I63.512 Cerebral infarction due to unspecified occlusion or stenosis of left middle cerebral artery; I11.0 Hypertensive heart disease with heart failure; I50.32 Chronic diastolic (congestive) heart failure; Z86.73 Personal history of transient ischemic attack (TIA), and cerebral infarction without residual deficits; Z74.01 Bed confinement status; Z93.1 Gastrostomy status; Z79.891 Long term (current) use of opiate analgesic; Z79.890 Hormone replacement therapy; Z79.899 Other long term (current) drug therapy; Z68.27 Body mass index [BMI] 27.0-27.9, adult
CPT/HCPCS: 36415; 36573; 36600; 70551; 71045; 74018; 74160; 76700; 77012; 78227; 80048; 80053; 80061; 80076; 80185; 81003; 82140; 82248; 82375; 82542; 82607; 82728; 82746; 82805; 82962; 83540; 83550; 83605; 84145; 84484; 85025; 86705; 86709; 86803; 87340; 87426; 93005; 93970; 93971; 95816; 99291; A9537; C1725; C1729; C1769; J1953; J2185; J2250; J3010; J3370; J3480; J3490; J7030; J7050; J7060; Q2009; Q9967; U0003-CS

== ENCOUNTER 2020-03-24 15:58 | Inpatient (IN) | payer MEDICAID ==
[~2020-03-24] VITALS: Ht 160 cm; Wt 53.2 kg
[~2020-03-24 15:58] MED LIST changes: +AMOX-424 MT; -LEVO100T9 PO; +LEVO50TA8 PO; -PHEN100C4 PO; -TRAMADOL
[2020-03-24] MEDS ORDERED: ACETAMINOPHEN 325MG TABLET PO STA (16:23)
[2020-03-24] MEDS ORDERED: PIPERACILLIN/TAZ 3.375G PREMIX 50 ML IV ONE (16:30)
[2020-03-24] MEDS ORDERED: VANCOMYCIN 1 G PREMIX 200 ML IV ONE (16:30)
[2020-03-24] MEDS ORDERED: SODIUM CHLORIDE 0.9% 1000ML BAG (SEPSIS BOLUS) IV ONE (16:30)
[2020-03-24 17:10] LABS: HEMATOCRIT. 33.7 % (36.0-48.0); HEMOGLOBIN. 10.9 g/dL (12.0-16.0); MEAN CORPUSCULAR HEMOGLOBIN 29.6 pg (28.0-32.0); MEAN CORPUSCULAR VOLUME 91.6 fL (81.0-99.0); PLATELET 335 x1000/uL (130-400); RED BLOOD CELL COUNT 3.68 mill/uL (4.2-5.4); RED CELL DISTRIBUTION WIDTH 14.7 % (11.6-14.6)
[2020-03-24 17:16] LABS: PROTHROMBIN TIME 10.6 sec (9.6-11.0)
[2020-03-24 17:18] LABS: CHLORIDE 111 mEq/L (98-107)
[2020-03-24 17:26] LABS: PLATELET ESTIMATE NORMAL
[2020-03-24 17:33] LABS: CLARITY URINE TURBID (CLEAR); COLOR URINE DARK YELLOW (YELLOW); KETONES URINE NEGATIVE (NEGATIVE); LEUKOCYTE ESTERASE URINE TRACE (NEGATIVE); NITRITE URINE NEGATIVE (NEGATIVE); OCCULT BLOOD URINE 1+ (NEGATIVE); PH URINE 7.5 (4.5-8.0); PROTEIN URINE 2+ (NEGATIVE); SPECIFIC GRAVITY URINE 1.012 (1.005-1.030)
[2020-03-24 23:00] VITALS: BP 126/68
[2020-03-25] VITALS (14 sets, daily range): BP systolic 92–119; BP diastolic 49–74
[2020-03-25] MEDS ORDERED: ACETAMINOPHEN 650MG/20.3ML UDC PO PRN (01:30)
[2020-03-25] MEDS ORDERED: ONDANSETRON HCL 4MG TABLET PO PRN (01:30)
[2020-03-25] MEDS ORDERED: HYDROCODONE/ACETAMINOPHEN 5/325MG TABLET PO PRN (01:30)
[2020-03-25] MEDS: PIPERACILLIN/TAZOBACTAM 3.375 G in DEXT 5% WATER 100 ML IV SCH ×4 (04:41→21:32)
[2020-03-25] MEDS ORDERED: DEXTROSE 50% WATER 50ML SYRINGE IV PRN (05:30)
[2020-03-25 05:59] LABS: CHLORIDE 114 mEq/L (98-107)
[2020-03-25] MEDS ORDERED: VANCOMYCIN 1 G PREMIX 200 ML IV SCH (06:00)
[2020-03-25 06:09] LABS: HEMATOCRIT. 30.6 % (36.0-48.0); HEMOGLOBIN. 9.9 g/dL (12.0-16.0); MEAN CORPUSCULAR HEMOGLOBIN 29.4 pg (28.0-32.0); MEAN CORPUSCULAR VOLUME 90.6 fL (81.0-99.0); MEAN PLATELET VOLUME 9.2 fl (7.4-10.4); PLATELET 326 x1000/uL (130-400); RED BLOOD CELL COUNT 3.37 mill/uL (4.2-5.4); RED CELL DISTRIBUTION WIDTH 14.7 % (11.6-14.6)
[2020-03-25] MEDS: BLOOD SUGAR DIAGNOSTIC STRIP TEST SCH ×4 (06:41→19:39)
[2020-03-25] MEDS: FAMOTIDINE 20MG TABLET PO SCH (06:49)
[2020-03-25] MEDS: LEVOTHYROXINE SODIUM 50MCG TABLET PO SCH (06:49)
[2020-03-25] MEDS ORDERED: POTASSIUM CHLORIDE 20MEQ TABLET SR PO NR (09:30)
[2020-03-25] MEDS: HEPARIN 5000 UNITS/ML VIAL SUBCUT SCH (10:26)
[2020-03-25] MEDS: LAMOTRIGINE 150MG TABLET PO SCH ×2 (10:26→17:47)
[2020-03-25] MEDS: LEVETIRACETAM 500MG TABLET PO SCH ×2 (10:26→21:32)
[2020-03-25] MEDS: FOLIC ACID 1MG TABLET PO SCH (10:27)
[2020-03-25] MEDS: OXCARBAZEPINE 300MG TABLET PO SCH ×2 (10:28→17:47)
[2020-03-25] MEDS ORDERED: ASCORBIC ACID 250 MG TABLET GT NR (13:00)
[2020-03-25 13:23] LABS: PLATELET ESTIMATE NORMAL
[2020-03-25] MEDS ORDERED: LEVETIRACETAM 500MG TABLET PO SCH (17:00)
[2020-03-25] MEDS ORDERED: OXCARBAZEPINE 300MG TABLET PO SCH (17:00)
[2020-03-25] MEDS ORDERED: LAMOTRIGINE 150MG TABLET PO SCH (17:00)
[2020-03-25] MEDS: VANCOMYCIN 750 MG PREMIX 150 ML IV SCH (23:01)
[2020-03-26] VITALS (15 sets, daily range): BP systolic 97–131; BP diastolic 54–75
[2020-03-26] MEDS: BLOOD SUGAR DIAGNOSTIC STRIP TEST SCH ×4 (00:06→17:39)
[2020-03-26] MEDS: PIPERACILLIN/TAZOBACTAM 3.375 G in DEXT 5% WATER 100 ML IV SCH ×4 (03:00→20:20)
[2020-03-26] MEDS: METOCLOPRAMIDE HCL 10MG/2ML VIAL IV SCH ×3 (05:48→21:12)
[2020-03-26] MEDS: INSULIN LISPRO 100 UNITS/ML SUBCUT SCH ×4 (05:51→17:39)
[2020-03-26] MEDS: FAMOTIDINE 20MG TABLET PO SCH (05:55)
[2020-03-26] MEDS: LEVOTHYROXINE SODIUM 50MCG TABLET PO SCH (05:55)
[2020-03-26] MEDS ORDERED: LEVOTHYROXINE SODIUM 50MCG TABLET PO SCH (06:50)
[2020-03-26] MEDS ORDERED: LIDOCAINE HCL 1% 20ML VIAL (Pyxis) INJ ONE (07:37)
[2020-03-26] MEDS: VANCOMYCIN 750 MG PREMIX 150 ML IV SCH (09:45)
[2020-03-26] MEDS: ASCORBIC ACID 250 MG TABLET GT SCH (09:46)
[2020-03-26] MEDS: LEVETIRACETAM 500MG TABLET PO SCH ×2 (09:46→21:12)
[2020-03-26] MEDS: LAMOTRIGINE 150MG TABLET PO SCH ×2 (09:46→17:39)
[2020-03-26] MEDS: FOLIC ACID 1MG TABLET PO SCH (09:46)
[2020-03-26] MEDS: ZINC SULFATE 220 MG ( 50 ) CAPSULE GT SCH (09:46)
[2020-03-26] MEDS: OXCARBAZEPINE 300MG TABLET PO SCH ×2 (09:46→17:39)
[2020-03-26] MEDS: HEPARIN 5000 UNITS/ML VIAL SUBCUT SCH (09:47)
[2020-03-26] MEDS: SODIUM CHLORIDE 0.45% 1,000 ML IV SCH (12:22)
[2020-03-26 12:56] LABS: BASOPHILS % 0.3 % (0.0-2.0); HEMATOCRIT. 26.8 % (36.0-48.0); HEMOGLOBIN. 8.9 g/dL (12.0-16.0); LYMPHOCYTES % 7.8 % (20.0-50.0); MEAN CORPUSCULAR HEMOGLOBIN 30.1 pg (28.0-32.0); MEAN CORPUSCULAR VOLUME 90.3 fL (81.0-99.0); MEAN PLATELET VOLUME 8.8 fl (7.4-10.4); MONOCYTES % 6.3 % (2.0-8.0); NEUTROPHILS % 81.6 % (40.0-76.0); PLATELET 334 x1000/uL (130-400); RED BLOOD CELL COUNT 2.97 mill/uL (4.2-5.4); RED CELL DISTRIBUTION WIDTH 15.3 % (11.6-14.6)
[2020-03-26 13:03] LABS: CHLORIDE 112 mEq/L (98-107)
[2020-03-26] MEDS ORDERED: POTASSIUM CHLORIDE 20MEQ/PACKET PO NR (17:15)
[2020-03-26] MEDS ORDERED: VANCOMYCIN 750 MG PREMIX 150 ML IV SCH (18:00)
[2020-03-27] VITALS (11 sets, daily range): BP systolic 93–128; BP diastolic 56–77
[2020-03-27] MEDS: BLOOD SUGAR DIAGNOSTIC STRIP TEST SCH ×2 (00:27→05:58)
[2020-03-27] MEDS: PIPERACILLIN/TAZOBACTAM 3.375 G in DEXT 5% WATER 100 ML IV SCH ×4 (03:07→21:41)
[2020-03-27] MEDS: METOCLOPRAMIDE HCL 10MG/2ML VIAL IV SCH ×3 (05:58→21:41)
[2020-03-27] MEDS: INSULIN LISPRO 100 UNITS/ML SUBCUT SCH ×2 (06:00)
[2020-03-27] MEDS: FAMOTIDINE 20MG TABLET PO SCH (06:12)
[2020-03-27] MEDS: LEVOTHYROXINE SODIUM 50MCG TABLET PO SCH (06:12)
[2020-03-27 06:45] LABS: BASOPHILS % 0.1 % (0.0-2.0); HEMATOCRIT. 26.9 % (36.0-48.0); HEMOGLOBIN. 8.9 g/dL (12.0-16.0); LYMPHOCYTES % 8.1 % (20.0-50.0); MEAN CORPUSCULAR HEMOGLOBIN 29.6 pg (28.0-32.0); MEAN CORPUSCULAR VOLUME 89.9 fL (81.0-99.0); MEAN PLATELET VOLUME 8.5 fl (7.4-10.4); MONOCYTES % 6.9 % (2.0-8.0); NEUTROPHILS % 79.9 % (40.0-76.0); PLATELET 335 x1000/uL (130-400); RED CELL DISTRIBUTION WIDTH 15.3 % (11.6-14.6)
[2020-03-27 07:00] LABS: CHLORIDE 113 mEq/L (98-107)
[2020-03-27] MEDS: ASCORBIC ACID 250 MG TABLET GT SCH (09:29)
[2020-03-27] MEDS: ZINC SULFATE 220 MG ( 50 ) CAPSULE GT SCH (09:29)
[2020-03-27] MEDS: FOLIC ACID 1MG TABLET PO SCH (09:29)
[2020-03-27] MEDS: OXCARBAZEPINE 300MG TABLET PO SCH ×2 (09:30→17:18)
[2020-03-27] MEDS: LAMOTRIGINE 150MG TABLET PO SCH ×2 (09:30→17:18)
[2020-03-27] MEDS: HEPARIN 5000 UNITS/ML VIAL SUBCUT SCH (09:30)
[2020-03-27] MEDS: LEVETIRACETAM 500MG TABLET PO SCH ×2 (09:30→21:41)
[2020-03-27] MEDS: SODIUM CHLORIDE 0.45% 1,000 ML IV SCH (11:00)
[2020-03-28] VITALS (13 sets, daily range): BP systolic 93–131; BP diastolic 40–73
[2020-03-28] MEDS: PIPERACILLIN/TAZOBACTAM 3.375 G in DEXT 5% WATER 100 ML IV SCH ×4 (03:17→22:00)
[2020-03-28] MEDS: METOCLOPRAMIDE HCL 10MG/2ML VIAL IV SCH ×3 (05:23→22:00)
[2020-03-28] MEDS: LEVOTHYROXINE SODIUM 50MCG TABLET PO SCH (05:55)
[2020-03-28] MEDS: FAMOTIDINE 20MG TABLET PO SCH (05:55)
[2020-03-28 07:00] LABS: BASOPHILS % 0.3 % (0.0-2.0); EOSINOPHILS % 3.4 % (0.0-5.0); HEMATOCRIT. 32.1 % (36.0-48.0); HEMOGLOBIN. 10.5 g/dL (12.0-16.0); LYMPHOCYTES % 10.2 % (20.0-50.0); MEAN CORPUSCULAR HEMOGLOBIN 29.7 pg (28.0-32.0); MEAN CORPUSCULAR VOLUME 90.4 fL (81.0-99.0); MEAN PLATELET VOLUME 8.7 fl (7.4-10.4); MONOCYTES % 8.9 % (2.0-8.0); NEUTROPHILS % 77.2 % (40.0-76.0); PLATELET 324 x1000/uL (130-400); RED BLOOD CELL COUNT 3.55 mill/uL (4.2-5.4); RED CELL DISTRIBUTION WIDTH 14.9 % (11.6-14.6)
[2020-03-28 07:08] LABS: CHLORIDE 110 mEq/L (98-107)
[2020-03-28] MEDS: HEPARIN 5000 UNITS/ML VIAL SUBCUT SCH (08:41)
[2020-03-28] MEDS: LAMOTRIGINE 150MG TABLET PO SCH ×2 (08:41→16:35)
[2020-03-28] MEDS: ZINC SULFATE 220 MG ( 50 ) CAPSULE GT SCH (08:41)
[2020-03-28] MEDS: ASCORBIC ACID 250 MG TABLET GT SCH (08:41)
[2020-03-28] MEDS: FOLIC ACID 1MG TABLET PO SCH (08:41)
[2020-03-28] MEDS: OXCARBAZEPINE 300MG TABLET PO SCH ×2 (08:41→16:35)
[2020-03-28] MEDS: LEVETIRACETAM 500MG TABLET PO SCH ×2 (08:41→22:00)
[2020-03-28] MEDS: ENOXAPARIN 60MG/0.6ML SYR SUBCUT SCH ×2 (11:14→22:00)
[2020-03-28] MEDS ORDERED: ZINC220C2 GT (16:39)
[2020-03-28] MEDS ORDERED: AMOX-424 MT (16:39)
[2020-03-28] MEDS ORDERED: ASC250 GT (16:39)
[2020-03-29] VITALS (12 sets, daily range): BP systolic 90–120; BP diastolic 55–76
[2020-03-29] MEDS: PIPERACILLIN/TAZOBACTAM 3.375 G in DEXT 5% WATER 100 ML IV SCH ×4 (03:56→21:15)
[2020-03-29] MEDS: FAMOTIDINE 20MG TABLET PO SCH (06:05)
[2020-03-29] MEDS: LEVOTHYROXINE SODIUM 50MCG TABLET PO SCH (06:05)
[2020-03-29] MEDS: METOCLOPRAMIDE HCL 10MG/2ML VIAL IV SCH ×3 (06:05→21:15)
[2020-03-29 07:03] LABS: BASOPHILS % 0.2 % (0.0-2.0); EOSINOPHILS % 2.5 % (0.0-5.0); HEMATOCRIT. 27.3 % (36.0-48.0); HEMOGLOBIN. 9.2 g/dL (12.0-16.0); LYMPHOCYTES % 9.3 % (20.0-50.0); MEAN CORPUSCULAR VOLUME 89.3 fL (81.0-99.0); MEAN PLATELET VOLUME 8.4 fl (7.4-10.4); MONOCYTES % 5.7 % (2.0-8.0); NEUTROPHILS % 82.3 % (40.0-76.0); PLATELET 336 x1000/uL (130-400); RED BLOOD CELL COUNT 3.06 mill/uL (4.2-5.4); RED CELL DISTRIBUTION WIDTH 15.9 % (11.6-14.6)
[2020-03-29 07:23] LABS: CHLORIDE 110 mEq/L (98-107)
[2020-03-29] MEDS: ENOXAPARIN 60MG/0.6ML SYR SUBCUT SCH (09:13)
[2020-03-29] MEDS: LAMOTRIGINE 150MG TABLET PO SCH ×2 (09:14→16:52)
[2020-03-29] MEDS: FOLIC ACID 1MG TABLET PO SCH (09:14)
[2020-03-29] MEDS: ZINC SULFATE 220 MG ( 50 ) CAPSULE GT SCH (09:14)
[2020-03-29] MEDS: LEVETIRACETAM 500MG TABLET PO SCH ×2 (09:14→21:15)
[2020-03-29] MEDS: ASCORBIC ACID 250 MG TABLET GT SCH (09:14)
[2020-03-29] MEDS: OXCARBAZEPINE 300MG TABLET PO SCH ×2 (09:15→16:52)
[2020-03-30] VITALS (13 sets, daily range): BP systolic 92–124; BP diastolic 58–79
[2020-03-30] MEDS: LEVOTHYROXINE SODIUM 50MCG TABLET PO SCH (06:36)
[2020-03-30] MEDS: FAMOTIDINE 20MG TABLET PO SCH (06:36)
[2020-03-30] MEDS: METOCLOPRAMIDE HCL 10MG/2ML VIAL IV SCH ×3 (06:36→21:34)
[2020-03-30] MEDS: ASCORBIC ACID 250 MG TABLET GT SCH (08:58)
[2020-03-30] MEDS: OXCARBAZEPINE 300MG TABLET PO SCH ×2 (08:58→17:35)
[2020-03-30] MEDS: LAMOTRIGINE 150MG TABLET PO SCH ×2 (08:58→17:35)
[2020-03-30] MEDS: ZINC SULFATE 220 MG ( 50 ) CAPSULE GT SCH (08:58)
[2020-03-30] MEDS: LEVETIRACETAM 500MG TABLET PO SCH ×2 (08:58→21:34)
[2020-03-30] MEDS: FOLIC ACID 1MG TABLET PO SCH (08:58)
[2020-03-30] MEDS ORDERED: PIPERACILLIN/TAZOBACTAM 3.375 G in DEXT 5% WATER 100 ML IV SCH (13:45)
[2020-03-30] MEDS: PIPERACILLIN/TAZOBACTAM 2.25 G in DEXTROSE 5% WATER 50 ML IV SCH ×2 (15:08→21:34)
[2020-03-31] VITALS (9 sets, daily range): BP systolic 99–121; BP diastolic 62–77
[2020-03-31] MEDS: METOCLOPRAMIDE HCL 10MG/2ML VIAL IV SCH ×2 (05:58→13:49)
[2020-03-31] MEDS: LEVOTHYROXINE SODIUM 50MCG TABLET PO SCH (05:58)
[2020-03-31] MEDS: FAMOTIDINE 20MG TABLET PO SCH (05:58)
[2020-03-31] MEDS: PIPERACILLIN/TAZOBACTAM 2.25 G in DEXTROSE 5% WATER 50 ML IV SCH (06:02)
[2020-03-31] MEDS: ASCORBIC ACID 250 MG TABLET GT SCH (08:22)
[2020-03-31] MEDS: FOLIC ACID 1MG TABLET PO SCH (08:22)
[2020-03-31] MEDS: LAMOTRIGINE 150MG TABLET PO SCH ×2 (08:22→16:37)
[2020-03-31] MEDS: OXCARBAZEPINE 300MG TABLET PO SCH ×2 (08:22→16:37)
[2020-03-31] MEDS: ZINC SULFATE 220 MG ( 50 ) CAPSULE GT SCH (08:22)
[2020-03-31] MEDS: LEVETIRACETAM 500MG TABLET PO SCH (08:22)
[2020-03-31] MEDS ORDERED: AMOX1TAB16 MT (13:47)
[2020-03-31] MEDS ORDERED: PIPERACILLIN/TAZOBACTAM 3.375 G in DEXT 5% WATER 100 ML IV SCH (14:00)
== END 2020-03-31 20:35 | DRG 720 ==
LOC: ER 15:58 → EDBEDREQ 17:40 → EDBEDREQSVC 17:40 → EDBEDREQTM 17:40 → 3WST 20:05 → EDBEDREQTM 20:06 → EDBEDREQ 20:06 → ENRESERV 21:54 → 3WST 23:03
PROVIDERS: ADMIT Internal Medicine; ATTEND Internal Medicine
PROC: 05HY33Z Insertion of Infusion Device into Upper Vein, Percutaneous Approach (ICD-10-PCS; principal; 2020-03-25)
PROC: B54MZZA Ultrasonography of Right Upper Extremity Veins, Guidance (ICD-10-PCS; 2020-03-25)
PROC: B51M1ZA Fluoroscopy of Right Upper Extremity Veins using Low Osmolar Contrast, Guidance (ICD-10-PCS; 2020-03-25)
DX: A41.9 Sepsis, unspecified organism (principal); E43 Unspecified severe protein-calorie malnutrition; J69.0 Pneumonitis due to inhalation of food and vomit; I48.91 Unspecified atrial fibrillation; F03.90 Unspecified dementia, unspecified severity, without behavioral disturbance, psychotic disturbance, mood disturbance, and anxiety; I50.32 Chronic diastolic (congestive) heart failure; G93.40 Encephalopathy, unspecified; D64.9 Anemia, unspecified; E87.6 Hypokalemia; N39.0 Urinary tract infection, site not specified; E87.0 Hyperosmolality and hypernatremia; G40.909 Epilepsy, unspecified, not intractable, without status epilepticus; E87.2 Acidosis; Z51.5 Encounter for palliative care; E03.9 Hypothyroidism, unspecified; K21.9 Gastro-esophageal reflux disease without esophagitis; R13.10 Dysphagia, unspecified; F32.9 Major depressive disorder, single episode, unspecified; J18.9 Pneumonia, unspecified organism; Z20.828 Contact with and (suspected) exposure to other viral communicable diseases; E11.9 Type 2 diabetes mellitus without complications; Z79.890 Hormone replacement therapy; Z86.73 Personal history of transient ischemic attack (TIA), and cerebral infarction without residual deficits; Z79.899 Other long term (current) drug therapy; Z74.01 Bed confinement status; Z93.1 Gastrostomy status; Z90.49 Acquired absence of other specified parts of digestive tract; I63.9 Cerebral infarction, unspecified
CPT/HCPCS: 36415; 36573; 70551; 71045; 74018; 80048; 80053; 80202; 81003; 82040; 82962; 83605; 83735; 84134; 84145; 84484; 85025; 87077; 87186; 87426; 93005; 93923; 93971; 99291; C1725; C1893; J1644; J1650; J2543; J2765; J3370; J3490; J7030; J7040; J7060; A4315